=== PATIENT | male | born 1970 | race Caucasian/White ===

== ENCOUNTER 2019-06-23 02:28 | Emergency (ER) | payer SELFPAY ==
[~2019-06-23] VITALS: Ht 177.8 cm; Wt 81.6 kg
[2019-06-23 02:40] VITALS: BP 133/83
--- NOTE | 2019-06-23 02:40 | NUR ---
TO BED # 12 AMBULATORY
--- NOTE | 2019-06-23 02:46 | NUR ---
48 Y/O M PRESENTS TO ED WITH C/O RT ARM PAIN FOR A FEW HOURS. ERYTHEMA AND SLIGHT EDEMA NOTED TO RT ELBOW. RT ELBOW WARM TO TOUCH AND TENDER TO TOUCH. PT UNSURE OF HOW HE SUSTAINED THE INJURY. WILL UPDATE ERMD ABOUT PT STATUS.
[2019-06-23] MEDS ORDERED: KETOROLAC 30 MG/ML VIAL IVP ONE (03:30)
[2019-06-23] MEDS ORDERED: VANCOMYCIN 1,000 MG in DEXTROSE 5% 250 ML IV ONE (03:30)
[2019-06-23] MEDS ORDERED: VANCOMYCIN 1,000 MG VIAL ONE (03:49)
[2019-06-23 04:59] VITALS: BP 128/79
--- NOTE | 2019-06-23 04:59 | NUR ---
PT SEEN WITH EYES CLOSED. VISIBLE CHEST RISE AND FALL NOTED.VSS. WILL CONTINUE TO MONITOR.
--- NOTE | 2019-06-23 06:00 | NUR ---
Patient discharged with v/s stable. Written and verbal after care instructions given and explained. Patient alert, oriented and verbalized understanding of instructions. Ambulatory with steady gait. All questions addressed prior to discharge. ID band removed. Patient advised to follow up with PMD. Rx of keflex and naprosyn given. Patient educated on indication of medication including possible reaction and side effects. Opportunity to ask questions provided and answered.
== END 2019-06-23 06:00 | disposition home or self-care (01) ==
LOC: MED 02:28
DX: L03.113 Cellulitis of right upper limb (principal)
CPT/HCPCS: 36415; 87040; 96365; 96366; 96375; 99283; J1885; J3370

== ENCOUNTER 2019-08-25 07:54 | Emergency (ER) | payer SELFPAY ==
[~2019-08-25] VITALS: Ht 177.8 cm; Wt 81.0 kg
[2019-08-25 08:01] VITALS: BP 123/65
--- NOTE | 2019-08-25 08:02 | NUR ---
PT TO BED 9 WITH STEADY GAIT
--- NOTE | 2019-08-25 08:13 | NUR ---
DR SLAUGHTER AT BEDSIDE
--- NOTE | 2019-08-25 08:14 | NUR ---
C/O PRODUCTIVE COUGH, SORE THROAT 6/10 PAIN, INTERMITTENT SOB X 2 WKS. LUNGS CLEAR BILATERALLY. DENIES N/V/D OR CP. PT ALERT AND AWAKE, VS STABLE, AFEBRILE PT REPORTS HE HAS NOT TAKEN ANY OTC MEDICATIONS DENIES PMH, DENIES RX
[2019-08-25 08:55] VITALS: BP 125/62
--- NOTE | 2019-08-25 08:55 | NUR ---
Patient discharged with v/s stable. Written and verbal after care instructions given and explained REHARDING BRONCHITIS. Patient alert, oriented and verbalized understanding of instructions. Ambulatory with steady gait. All questions addressed prior to discharge. ID band removed. Patient advised to follow up with PMD. Rx of ROBITUSSIN AND CLARITIN given. Patient educated on indication of medication including possible reaction and side effects. Opportunity to ask questions provided and answered.
== END 2019-08-25 08:55 | disposition home or self-care (01) ==
LOC: MED 07:54
DX: J40 Bronchitis, not specified as acute or chronic (principal); J02.9 Acute pharyngitis, unspecified
CPT/HCPCS: 71046; 99283

== ENCOUNTER 2021-04-15 22:39 | Emergency (ER) | payer SELFPAY ==
--- NOTE | 2021-04-15 23:25 | NUR ---
PATIENT Called to be triage, no response PATIENT LEFT WITHOUT BEING SEEN BY DR. MYLES. NO FURTHER CARE PROVIDED FOR PATIENT.
--- NOTE | 2021-04-15 23:35 | NUR ---
CALLED FOR THE SECOND TIME NO RESPONSE
--- NOTE | 2021-04-15 23:40 | NUR ---
CALLED FOR THE THIRD TIME, NO RESPONSE
== END 2021-04-15 23:25 | disposition left against medical advice (07) ==
LOC: MED 22:39
DX: Z53.21 Procedure and treatment not carried out due to patient leaving prior to being seen by health care provider (principal)

== ENCOUNTER 2021-04-21 21:19 | Emergency (ER) | payer MEDICAID ==
[~2021-04-21] VITALS: Ht 182.9 cm; Wt 81.6 kg
[2021-04-21 21:20] VITALS: BP 116/79
--- NOTE | 2021-04-21 21:23 | NUR ---
TO LOBBY A/W BED AMBULATORY
[2021-04-21] MEDS ORDERED: ASPIRIN 325 MG TAB PO ONE (22:30)
[2021-04-21] MEDS ORDERED: NITROGLYCERIN 0.4 MG TAB SL ONE (22:30)
[2021-04-21 22:50] LABS: BASOPHILS # (AUTO) 0.1 K/uL (0.00-0.22); BASOPHILS % (AUTO) 0.9 % (0.0-2.0); EOSINOPHILS # (AUTO) 0.1 K/uL (0-0.4); EOSINOPHILS % (AUTO) 1.1 % (0.0-4.0); HEMATOCRIT 38.8 % (36-52); HEMOGLOBIN 13.1 g/dL (12.0-18.0); LYMPHOCYTES # (AUTO) 0.9 K/uL (2.0-11.5); LYMPHOCYTES % (AUTO) 15.1 % (20.5-51.1); MEAN CORPUSCULAR HEMOGLOBIN 32 pg (27-31); MEAN CORPUSCULAR HGB CONC 34 g/dL (33-37); MEAN CORPUSCULAR VOLUME 93.8 fL (80-94); MONOCYTES # (AUTO) 0.8 K/uL (0.8-1.0); MONOCYTES % (AUTO) 12.9 % (1.7-9.3); NEUTROPHILS # (AUTO) 4.3 K/uL (1.8-7.7); PLATELET COUNT (AUTO) 378 K/uL (140-450); RED BLOOD CELL COUNT(AUTO) 4.14 MIL/uL (4.20-6.10); RED CELL DISTRIBUTION WIDTH 12.7 % (11.6-13.7); WHITE BLOOD COUNT (AUTO) 6.2 K/uL (4.8-10.8)
[2021-04-21 23:07] LABS: ANION GAP 8.1 (8-16); ASPARTATE AMINOTRANSFERASE 37 U/L (15-37); CARBON DIOXIDE 29.5 mmol/L (21-32); CHLORIDE 104 mmol/L (98-107); GFR ARICAN-AMERICAN 101 mL/min (>90); GLUCOSE 128 mg/dL (74-106); POTASSIUM 3.6 mmol/L (3.5-5.1); SODIUM SERUM 138 mmol/L (136-145); TOTAL BILIRUBIN 0.7 mg/dL (0.0-1.0); UREA NITROGEN, BLOOD 17 mg/dL (7-18)
--- NOTE | 2021-04-21 23:26 | NUR ---
Sherly jacques in [facility] - 04/21/21 at 2332 by MEDDM TO ER BED 3
--- NOTE | 2021-04-21 23:32 | NUR ---
AMBULATED TO ER BED 3
[2021-04-22] MEDS ORDERED: NITROGLYCERIN 0.4 MG TAB SL ONE
--- NOTE | 2021-04-22 | NUR ---
Per ERMD medicated patient. patient tolerated well
[2021-04-22] MEDS ORDERED: ASPIRIN 325 MG TAB ONE (00:01)
--- NOTE | 2021-04-22 00:13 | NUR ---
Patient does not wish to proceed with medical care recommended by Zelda. Patient given information related to possible complications, up to and including , which could occur as a result of leaving hospital at this time. Patient verbalizes understanding of risks involved leaving against medical advice. Patient has signed AMA form.
[2021-04-22 00:15] VITALS: BP 115/67
== END 2021-04-22 00:13 | disposition left against medical advice (07) ==
LOC: MED 21:19
DX: R07.9 Chest pain, unspecified (principal); R00.2 Palpitations; R05 Cough
CPT/HCPCS: 71045; 80053; 84484; 85025; 93005; 99285; G0482

== ENCOUNTER 2021-04-22 05:37 | Inpatient (IN) | payer MEDICAID ==
[~2021-04-22] VITALS: Ht 177.8 cm; Wt 81.6 kg
[2021-04-22 06:00] VITALS: BP 133/73
--- NOTE | 2021-04-22 06:00 | NUR ---
TO PSYCHIATRIC AMBULATORY
--- NOTE | 2021-04-22 06:28 | NUR ---
SEEN AND EXAMINED BY ERMD WITH ORDERS.
[2021-04-22 07:01] LABS: BASOPHILS # (AUTO) 0.1 K/uL (0.00-0.22); EOSINOPHILS # (AUTO) 0.1 K/uL (0-0.4); EOSINOPHILS % (AUTO) 2.3 % (0.0-4.0); HEMATOCRIT 39.3 % (36-52); HEMOGLOBIN 13.2 g/dL (12.0-18.0); LYMPHOCYTES # (AUTO) 0.8 K/uL (2.0-11.5); LYMPHOCYTES % (AUTO) 14.5 % (20.5-51.1); MEAN CORPUSCULAR HEMOGLOBIN 32 pg (27-31); MEAN CORPUSCULAR HGB CONC 34 g/dL (33-37); MEAN CORPUSCULAR VOLUME 93.8 fL (80-94); MONOCYTES % (AUTO) 16.5 % (1.7-9.3); NEUTROPHILS # (AUTO) 3.8 K/uL (1.8-7.7); NEUTROPHILS % (AUTO) 65.7 % (42.2-75.2); PLATELET COUNT (AUTO) 342 K/uL (140-450); RED BLOOD CELL COUNT(AUTO) 4.19 MIL/uL (4.20-6.10); RED CELL DISTRIBUTION WIDTH 12.8 % (11.6-13.7); WHITE BLOOD COUNT (AUTO) 5.8 K/uL (4.8-10.8)
[2021-04-22 07:16] LABS: ALBUMIN 3.1 g/dL (3.4-5.0); CARBON DIOXIDE 26.9 mmol/L (21-32); POTASSIUM 3.9 mmol/L (3.5-5.1); TOTAL BILIRUBIN 0.5 mg/dL (0.0-1.0)
--- NOTE | 2021-04-22 07:52 | NUR ---
PT TAKEN TO ROOM 3. PT PLACED IN GOWN AND PLACED ONTO CARDIC MONITOR. PT ALSO PROVIDED WITH WARM BLANKET
--- NOTE | 2021-04-22 08:06 | NUR ---
50 Y MALE WITH C/O CHEST PAIN X1 DAY. PT STATED PAIN STARTED RANDOMLY ALONG WITH LE SWELLING BILATERALLY. DENIES RADITING PAIN AND STATED PAIN IS ONLY FELT IN HIS CHEST REGION. PT STATED "PAIN FEELS LIKE SOMEONE IS PUSHING DOWN ON HIS CHEST." UPON ASSESSMENT S1 AND S2 HEARD. NKA PMH: DENIES
[2021-04-22] MEDS ORDERED: ASPIRIN 81 MG TAB.CHEW PO ONE (08:35)
[2021-04-22] MEDS ORDERED: NACL 0.9% 1,000 ML IV SCH (08:40)
[2021-04-22] MEDS ORDERED: POTASSIUM CHLORIDE 10 MEQ TABER PO PRN (08:40)
[2021-04-22] MEDS ORDERED: ZOLPIDEM 5 MG TAB PO PRN (08:40)
[2021-04-22] MEDS ORDERED: HYDROcodone/APAP 7.5/325 MG 1 TAB PO PRN (08:40)
[2021-04-22] MEDS ORDERED: guaiFENesin DM 200/20 MG-10 ML 10 ML UDC PO PRN (08:40)
[2021-04-22] MEDS ORDERED: DOCUSATE SODIUM 100 MG GELCAP PO PRN (08:40)
[2021-04-22] MEDS ORDERED: ACETAMINOPHEN 325 MG TAB PO PRN (08:40)
[2021-04-22] MEDS ORDERED: ONDANSETRON 4 MG/2 ML VIAL IM/IVP PRN (08:40)
[2021-04-22] MEDS ORDERED: NITROGLYCERIN 0.4 MG TAB SL PRN (08:40)
--- NOTE | 2021-04-22 08:50 | NUR ---
UA COLLECTED BEDSIDE AND WALKED OVER TO LAB
--- NOTE | 2021-04-22 08:55 | NUR ---
CHEST XRAY BEDSIDE WITH PT
[2021-04-22] MEDS ORDERED: METOPROLOL 25 MG TAB PO SCH (09:00)
[2021-04-22] MEDS ORDERED: lisinopriL 5 MG TAB PO SCH (09:00)
[2021-04-22] MEDS ORDERED: PANTOPRAZOLE 40 MG TABEC PO SCH (09:00)
[2021-04-22] MEDS ORDERED: ECOTRIN 81 MG TABEC PO SCH (09:00)
[2021-04-22 09:18] LABS: APPEARANCE,URINE CLEAR (CLEAR); BILIRUBIN,URINE 2+ (NEGATIVE); BLOOD, URINE NEGATIVE (NEGATIVE); COLOR,URINE DARK YELLOW (YELLOW); LEUKOCYTE ESTERASE ,URINE NEGATIVE (NEGATIVE); NITRITE, URINE NEGATIVE (NEGATIVE); UGLUCOSE NEGATIVE (NEGATIVE)
[2021-04-22] MEDS ORDERED: CRUSHER, PILL MC ONE (09:28)
[2021-04-22 10:27] LABS: CHOL/HDL RATIO 4.3 (1-4.5); FREE T4 (FREE THYROXINE) 0.99 ng/dL (0.76-1.46); PHOSPHORUS 3.4 mg/dL (2.5-4.9); THYROID STIMULATING HORMONE 2.05 uIU/mL (0.34-3.74)
[2021-04-22 10:55] LABS: PROTHROMBIN TIME 10.2 secs (10.8-13.4)
--- NOTE | 2021-04-22 11:59 | NUR ---
PT HAS BEEN PROVIDED WITH LUNCH TRAY BEDSIDE
[2021-04-22 12:20] LABS: BARBITURATE, URINE NEGATIVE ng/ml (NEG <=200); BENZODIAZEPINE, URINE NEGATIVE ng/mL (NEG <=200); CANNABINOID, URINE POSITIVE ng/mL (NEG <=50); COCAINE, URINE NEGATIVE ng/mL (NEG <=300); OPIATE, URINE NEGATIVE ng/mL (NEG <=2000); PHENCYCLIDINE SCREEN,URINE NEGATIVE ng/mL (NEG <=25)
--- NOTE | 2021-04-22 14:31 | NUR ---
PT CURRENTLY RESTING WITH EYES CLOSED. BED IN LOWEST POSITION WITH LIGHTS OFF. BED IN LOWEST POSITION WITH SIDERAIL X1 UP. VITAL SIGNS STABLE AND PT STILL ON CARDIC MONITOR. WILL CONTINUE TO MONITOR
[2021-04-22] MEDS ORDERED: ATORVASTATIN 20 MG TAB PO SCH (17:00)
--- NOTE | 2021-04-22 17:42 | NUR ---
DR. APOLLO FLORIAN MADE AWARE OF PT LEAVING AMA. INFORMED MD THAT SIGNATURE IS NEEDED ON AMA FORM
[2021-04-22 17:56] VITALS: BP 112/73
--- NOTE | 2021-04-22 17:56 | NUR ---
Patient does not wish to proceed with medical care recommended by dr. mis barron. Patient given information related to possible complications, up to and including , which could occur as a result of leaving hospital at this time. Patient verbalizes understanding of risks involved leaving against medical advice. Patient has signed AMA form.
[2021-04-23 08:08] LABS: T4 (THYROXINE) 10.6 ug/dL (4.5-12.0)
== END 2021-04-22 17:41 | disposition left against medical advice (07) | DRG 190 ==
LOC: MED 05:37 → MTU 09:07
PROVIDERS: ADMIT Family Medicine; ATTEND Family Medicine
DX: I21.A1 Myocardial infarction type 2 (principal); E44.1 Mild protein-calorie malnutrition; E86.0 Dehydration; F15.10 Other stimulant abuse, uncomplicated
CPT/HCPCS: 36415; 71045; 80053; 80305; 81003; 82150; 83036; 83690; 83735; 83880; 84100; 84436; 84439; 84443; 84479; 84484; 85025; 85610; 85730; 93005; 93971; 96372; 99285; J1644; Q0092

== ENCOUNTER 2021-06-05 08:13 | Emergency (ER) | payer MEDICAID, SELFPAY ==
[~2021-06-05] VITALS: Ht 177.8 cm; Wt 86.2 kg
[2021-06-05 09:03] VITALS: BP 159/79
--- NOTE | 2021-06-05 09:33 | NUR ---
50 Y MALE WITH C/O NITHIN LOWER LEGS SWELLING X1 MONTH AND C/O BLURRED VISION X 4 DAYS. PT STATED THE SWELLING STARTED SHORTLY AFTER HE WAS D/C AND HAS PROGRESSIVLEY GOTTEN WORSE OVER TIME. UPON ASSESSMENT SLIGHT REDNESS NOTED ON BILTERAL LE AND PITTING EDEMA NOTED +1 ON BILATERAL LE AND UE. PEDIAL AND RADIAL PULSES BILATERALLY FELT AND STRONG. WEAKNESS NOTED ON LE AND UE BOX [employer] LO[employer] VA: RIGHT 20/40, LEFT EYE 20/20, BOTH EYES 20/40 PMH: HERNIA REPAIR
--- NOTE | 2021-06-05 09:34 | NUR ---
DR. SOLER BEDSIDE EVALUATING PT
[2021-06-05] MEDS ORDERED: ASPIRIN 325 MG TAB PO ONE (09:40)
[2021-06-05] MEDS ORDERED: cephALEXin 500 MG CAP PO ONE (09:40)
[2021-06-05] MEDS ORDERED: FUROSEMIDE 40 MG/4 ML VIAL IVP ONE (09:40)
--- NOTE | 2021-06-05 10:00 | NUR ---
ULTRASOUND BEDSIDE WITH PATIENT
--- NOTE | 2021-06-05 10:20 | NUR ---
20 G IV ESTABLISHED IN R FOREARM. BLOOD WORK COLLECTED FROM IV AND HANDED TO LABORATORY CHEMICAL ASSISTANT ALEJANDRO
--- NOTE | 2021-06-05 10:29 | NUR ---
PT TAKEN TO CT VIA [facility]
--- NOTE | 2021-06-05 10:29 | NUR ---
PT ALSO PROVIDED WITH BLANKET AND URINAL BEDSIDE
[2021-06-05 10:32] LABS: BASOPHILS % (AUTO) 0.6 % (0.0-2.0); EOSINOPHILS # (AUTO) 0.1 K/uL (0-0.4); EOSINOPHILS % (AUTO) 2.2 % (0.0-4.0); HEMATOCRIT 36.5 % (36-52); HEMOGLOBIN 12.1 g/dL (12.0-18.0); LYMPHOCYTES # (AUTO) 0.7 K/uL (2.0-11.5); LYMPHOCYTES % (AUTO) 9.8 % (20.5-51.1); MEAN CORPUSCULAR HEMOGLOBIN 31 pg (27-31); MEAN CORPUSCULAR HGB CONC 33 g/dL (33-37); MEAN CORPUSCULAR VOLUME 94.1 fL (80-94); MONOCYTES # (AUTO) 0.9 K/uL (0.8-1.0); MONOCYTES % (AUTO) 12.8 % (1.7-9.3); NEUTROPHILS % (AUTO) 74.6 % (42.2-75.2); PLATELET COUNT (AUTO) 402 K/uL (140-450); RED BLOOD CELL COUNT(AUTO) 3.88 MIL/uL (4.20-6.10); RED CELL DISTRIBUTION WIDTH 13.1 % (11.6-13.7); WHITE BLOOD COUNT (AUTO) 6.7 K/uL (4.8-10.8)
--- NOTE | 2021-06-05 10:38 | NUR ---
PT RETURNED TO BED [address] V[address] [facility]
[2021-06-05 10:49] LABS: ANION GAP 12.3 (8-16); POTASSIUM 4.3 mmol/L (3.5-5.1)
--- NOTE | 2021-06-05 11:35 | NUR ---
950 ML REMOVED FROM PT URINAL AND RETURNED TO PATIENT BEDSIDE Addendum: 06/05/21 at 1143 by [email or web address] 950 ml emptied from urinal
--- NOTE | 2021-06-05 11:43 | NUR ---
dr. greene bedside speaking with patient
--- NOTE | 2021-06-05 12:00 | NUR ---
Patient appears to be resting comfortably in bed and tlaking on phone. Vital Signs within normal limits and charted. Respirations even and unlabored.
[2021-06-05] MEDS ORDERED: FURO-570 PO (12:40)
[2021-06-05] MEDS ORDERED: CEPH-588 PO (12:40)
[2021-06-05] MEDS ORDERED: SULF-59 PO (12:40)
[2021-06-05 12:48] VITALS: BP 121/82
--- NOTE | 2021-06-05 12:48 | NUR ---
Patient discharged with v/s stable. Written and verbal after care instructions given and explained. Patient alert, oriented and verbalized understanding of instructions. Ambulatory with steady gait. All questions addressed prior to discharge. ID band removed. Patient advised to follow up with PMD. Rx of KEFLEX, LASIX, AND BACTRIM given. Patient educated on indication of medication including possible reaction and side effects. Opportunity to ask questions provided and answered.
== END 2021-06-05 12:48 | disposition home or self-care (01) ==
LOC: MED 08:13
DX: L03.90 Cellulitis, unspecified (principal); R60.0 Localized edema; R42 Dizziness and giddiness; I10 Essential (primary) hypertension; Z98.890 Other specified postprocedural states; Z79.899 Other long term (current) drug therapy
CPT/HCPCS: 36415; 70450; 80048; 83880; 84484; 85025; 93005; 93970; 96374; 99285; J1940; Q0092

== ENCOUNTER 2022-07-28 01:14 | Emergency (ER) | payer MEDICAID ==
[~2022-07-28] VITALS: Ht 177.8 cm; Wt 90.7 kg
[~2022-07-28 01:14] MED LIST: HYDR-5080 PO
[2022-07-28 01:25] VITALS: BP 130/89
--- NOTE | 2022-07-28 01:25 | NUR ---
TO BED AMBULATORY
[2022-07-28] MEDS ORDERED: KETOROLAC 30 MG/ML VIAL IM ONE (01:45)
[2022-07-28 01:58] LABS: BASOPHILS % (AUTO) 0.8 % (0.0-2.0); EOSINOPHILS # (AUTO) 0.2 K/uL (0-0.4); EOSINOPHILS % (AUTO) 3.6 % (0.0-4.0); HEMATOCRIT 37.1 % (36-52); HEMOGLOBIN 12.4 g/dL (12.0-18.0); LYMPHOCYTES # (AUTO) 1.5 K/uL (2.0-11.5); LYMPHOCYTES % (AUTO) 23.2 % (20.5-51.1); MEAN CORPUSCULAR HEMOGLOBIN 32 pg (27-31); MEAN CORPUSCULAR HGB CONC 34 g/dL (33-37); MEAN CORPUSCULAR VOLUME 94.2 fL (80-94); MONOCYTES # (AUTO) 0.7 K/uL (0.8-1.0); MONOCYTES % (AUTO) 11.6 % (1.7-9.3); NEUTROPHILS # (AUTO) 3.8 K/uL (1.8-7.7); NEUTROPHILS % (AUTO) 60.8 % (42.2-75.2); PLATELET COUNT (AUTO) 300 K/uL (140-450); RED BLOOD CELL COUNT(AUTO) 3.94 MIL/uL (4.20-6.10); RED CELL DISTRIBUTION WIDTH 12.8 % (11.6-13.7); WHITE BLOOD COUNT (AUTO) 6.3 K/uL (4.8-10.8)
[2022-07-28 02:12] LABS: ALBUMIN 3.3 g/dL (3.4-5.0); CARBON DIOXIDE 29.4 mmol/L (21-32); POTASSIUM 3.4 mmol/L (3.5-5.1); TOTAL BILIRUBIN 0.5 mg/dL (0.0-1.0)
--- NOTE | 2022-07-28 02:49 | NUR ---
US AT BEDSIDE
--- NOTE | 2022-07-28 03:35 | NUR ---
ERMD AT BEDSIDE
[2022-07-28] MEDS ORDERED: LIDOCAINE 1% 500 MG/ 50 ML VIAL INJ ONE (04:00)
[2022-07-28] MEDS ORDERED: LIDOCAINE 2% 1000 MG/50 ML VIAL INJ ONE (04:03)
--- NOTE | 2022-07-28 04:09 | NUR ---
LIDOCAINE 1% NOT AVAILABLE. VERBAL ORDER FROM DEJA DAVID FOR 2% LIDOCAINE. HANDED TO &WILL BE ADMINISTERED BY DEJA.
--- NOTE | 2022-07-28 04:20 | NUR ---
ASPIRATION OF HEMATOMA PROCEDURE PERFORMED BY DEJA -300CC COLLECTED.
[2022-07-28] MEDS ORDERED: IBUP-2213 PO (04:23)
[2022-07-28] MEDS ORDERED: HYDR-5191 PO (04:23)
[2022-07-28 04:32] VITALS: BP 130/89
--- NOTE | 2022-07-28 04:32 | NUR ---
Patient discharged with v/s stable. Written and verbal after care instructions given and explained. Patient alert, oriented and verbalized understanding of instructions. Ambulatory with steady gait. All questions addressed prior to discharge. ID band removed. Patient advised to follow up with PMD. Rx of HYDROCODONE ACETAMINOPHEN IBUPROFEN given.
== END 2022-07-28 04:32 | disposition home or self-care (01) ==
LOC: MED 01:14
DX: S70.12XA Contusion of left thigh, initial encounter (principal); I10 Essential (primary) hypertension; Z79.899 Other long term (current) drug therapy; X58.XXXA Exposure to other specified factors, initial encounter; Y93.89 Activity, other specified; Y92.89 Other specified places as the place of occurrence of the external cause; Y99.8 Other external cause status
CPT/HCPCS: 10160; 36415; 80053; 83605; 85025; 85379; 93971; 96372; 99284; J1885; J2001; Q0092

== ENCOUNTER 2022-07-31 01:43 | Inpatient (IN) | payer MEDICAID ==
[~2022-07-31] VITALS: Ht 177.8 cm; Wt 90.7 kg
[~2022-07-31 01:43] MED LIST changes: +HYDR-5191 PO; +IBUP-2213 PO
[2022-07-31 02:43] VITALS: BP 154/90
--- NOTE | 2022-07-31 02:45 | NUR ---
TO LOBBY A/W BED AMBULATORY
--- NOTE | 2022-07-31 02:50 | NUR ---
Patient lying in bed, A/Ox4, chest rise and fall symmetrical, no s/s of distress.
--- NOTE | 2022-07-31 02:52 | NUR ---
PT TAKEN TO BED 2
--- NOTE | 2022-07-31 03:13 | NUR ---
Dr. Martinez examining patient.
[2022-07-31] MEDS ORDERED: HYDROcodone/APAP 10/325 MG 1 TAB TAB PO ONE (03:45)
--- NOTE | 2022-07-31 04:15 | NUR ---
Patient lying in bed, A/Ox4, chest rise and fall symmetrical, no s/s of distress.
--- NOTE | 2022-07-31 04:58 | NUR ---
WILLY COLLECTED AND TAKEN TO LAB.
[2022-07-31] MEDS: NACL 0.9% 1,000 ML IV ONE ×2 (05:52→07:22)
--- NOTE | 2022-07-31 05:52 | NUR ---
Note undone in [facility] - 07/31/22 at 06 by [email or web address] Patient refusing IV insertion. Dr. Piper verbally informed that patient is refusing IV insertion. Addendum: 07/31/22 at 0631 by [email or web address] Amendment undone in [facility] - 07/31/22 at 06 by [email or web address] Patient refusing IV insertion. Dr. Piper verbally informed that patient is refusing IV insertion. Dr. Piper is aware.
--- NOTE | 2022-07-31 06:00 | NUR ---
Patient refusing IV insertion. Dr. Piper verbally informed that patient is refusing IV insertion. Dr. Piper stated that patient must have an IV. Patient informed verbally of Dr. Piper's statement. PAtient agreed to IV insertion.
--- NOTE | 2022-07-31 06:32 | NUR ---
Patient lying in bed, A/Ox4, chest rise and fall symmetrical, no s/s of distress.
--- NOTE | 2022-07-31 07:20 | NUR ---
Patient lying in bed, A/Ox4, chest rise and fall symmetrical, no s/s of distress.
--- NOTE | 2022-07-31 07:22 | NUR ---
Change of shift report given to AM shift nurse Modesta. AM shift nurse Modesta verbalized understanding of report, no further questions.
--- NOTE | 2022-07-31 07:31 | NUR ---
Sherly jacques in ED - 07/31/22 at 0733 by [email or web address] Change of shift report given to AM shift nurse Modesta. AM shift nurse Modesta verbalized understanding of report, no further questions.
--- NOTE | 2022-07-31 07:55 | NUR ---
PT MOVED TO BED 5 VIA [facility]
[2022-07-31] MEDS ORDERED: guaiFENesin DM 200/20 MG-10 ML 10 ML UDC PO PRN (08:05)
[2022-07-31] MEDS ORDERED: ZOLPIDEM 5 MG TAB PO PRN (08:05)
[2022-07-31] MEDS ORDERED: DOCUSATE SODIUM 100 MG GELCAP PO PRN (08:05)
[2022-07-31] MEDS ORDERED: POTASSIUM CHLORIDE 10 MEQ TABER PO PRN (08:05)
[2022-07-31] MEDS ORDERED: ACETAMINOPHEN 325 MG TAB PO PRN (08:05)
[2022-07-31] MEDS ORDERED: ONDANSETRON 4 MG/2 ML VIAL IM/IVP PRN (08:05)
[2022-07-31] MEDS ORDERED: HYDROcodone/APAP 7.5/325 MG 1 TAB PO PRN (08:05)
--- NOTE | 2022-07-31 08:35 | NUR ---
PT TAKEN TO CT VIA [facility]
--- NOTE | 2022-07-31 08:41 | NUR ---
PT BROUGHT BACK FROM CT VIA [facility]
--- NOTE | 2022-07-31 08:42 | NUR ---
MD FLORIAN AT BEDSIDE FOR EVALUATION
[2022-07-31] MEDS ORDERED: PANTOPRAZOLE 40 MG TABEC PO SCH (09:00)
[2022-07-31 09:01] LABS: PROTHROMBIN TIME 10.6 secs (10.8-13.4)
[2022-07-31 09:06] LABS: CHOL/HDL RATIO 1.8 (1-4.5); FREE T4 (FREE THYROXINE) 1.08 ng/dL (0.76-1.46); MAGNESIUM 1.8 mg/dL (1.8-2.4); PHOSPHORUS 3.1 mg/dL (2.5-4.9); THYROID STIMULATING HORMONE 2.1 uIU/mL (0.34-3.74)
[2022-07-31] MEDS ORDERED: cefTRIAXone 1,000 MG VIAL ONE (09:06)
--- NOTE | 2022-07-31 09:08 | NUR ---
WRITTEN ORDERS VIA HOSPITAL PHONE RECEIVED FROM MD FLORIAN. ORDERS ENTERED AND CARRIED OUT +CBC
[2022-07-31 09:30] VITALS: BP 134/82
--- NOTE | 2022-07-31 09:30 | NUR ---
Patient will be admitted to care of MD FLORIAN . Admited to [facility]. Will go to room 118. Belongings list completed. Report to ALONZO SHEN. Addendum: 07/31/22 at 0953 by PHSEP ROCEPHIN PULLED AND HELD DUE TO PENDING BLOOD CULTURE DRAW. FLOOR NURSE MADE AWARE AND HANDED MEDICATION.
--- NOTE | 2022-07-31 09:54 | NUR ---
Patient eloped refused to sign against medical advice.
[2022-07-31 10:11] LABS: BASOPHILS # (AUTO) 0.1 K/uL (0.00-0.22); BASOPHILS % (AUTO) 0.9 % (0.0-2.0); EOSINOPHILS # (AUTO) 0.2 K/uL (0-0.4); EOSINOPHILS % (AUTO) 3.7 % (0.0-4.0); HEMATOCRIT 38.6 % (36-52); LYMPHOCYTES # (AUTO) 1.8 K/uL (2.0-11.5); LYMPHOCYTES % (AUTO) 30.7 % (20.5-51.1); MEAN CORPUSCULAR HEMOGLOBIN 32 pg (27-31); MEAN CORPUSCULAR HGB CONC 34 g/dL (33-37); MEAN CORPUSCULAR VOLUME 94.8 fL (80-94); MONOCYTES # (AUTO) 0.6 K/uL (0.8-1.0); MONOCYTES % (AUTO) 10.1 % (1.7-9.3); NEUTROPHILS # (AUTO) 3.1 K/uL (1.8-7.7); NEUTROPHILS % (AUTO) 54.6 % (42.2-75.2); PLATELET COUNT (AUTO) 325 K/uL (140-450); RED BLOOD CELL COUNT(AUTO) 4.07 MIL/uL (4.20-6.10); RED CELL DISTRIBUTION WIDTH 13.2 % (11.6-13.7); WHITE BLOOD COUNT (AUTO) 5.7 K/uL (4.8-10.8)
[2022-08-01 08:07] LABS: T4 (THYROXINE) 10.4 ug/dL (4.5-12.0)
== END 2022-07-31 09:55 | disposition left against medical advice (07) | DRG 384 ==
LOC: MED 01:43 → MMU 05:35 → MTU 09:26
PROVIDERS: ADMIT Family Medicine; ATTEND Family Medicine
DX: S70.12XA Contusion of left thigh, initial encounter (principal); I10 Essential (primary) hypertension; Z20.822 Contact with and (suspected) exposure to COVID-19; X58.XXXA Exposure to other specified factors, initial encounter; Y93.89 Activity, other specified; Y92.89 Other specified places as the place of occurrence of the external cause; Y99.8 Other external cause status; Z59.86 Financial insecurity
CPT/HCPCS: 36415; 73700; 82150; 83036; 83690; 83735; 83880; 84100; 84436; 84439; 84443; 84479; 85025; 85610; 85730; 93971; 96360; 99285; J0696; J7030; Q0092

== ENCOUNTER 2023-05-19 21:56 | Emergency (ER) | payer MEDICAID ==
[~2023-05-19] VITALS: Ht 177.8 cm; Wt 81.6 kg
[2023-05-19 22:08] VITALS: BP 139/111; PULSE 86; RESP 18; TEMP 98.6; O2SAT 100
[2023-05-19 22:49] LABS: AMPHETAMINE, URINE POSITIVE ng/ml (NEG <=1000); BARBITURATE, URINE NEGATIVE ng/ml (NEG <=200); BENZODIAZEPINE, URINE NEGATIVE ng/mL (NEG <=200); CANNABINOID, URINE NEGATIVE ng/mL (NEG <=50); COCAINE, URINE NEGATIVE ng/mL (NEG <=300); PHENCYCLIDINE SCREEN,URINE NEGATIVE ng/mL (NEG <=25)
[2023-05-19 22:50] LABS: OPIATE, URINE NEGATIVE ng/mL (NEG <=2000)
[2023-05-19 23:31] LABS: BASOPHILS # (AUTO) 0.1 K/uL (0.00-0.22); BASOPHILS % (AUTO) 0.7 % (0.0-2.0); EOSINOPHILS # (AUTO) 0.1 K/uL (0-0.4); EOSINOPHILS % (AUTO) 0.6 % (0.0-4.0); HEMOGLOBIN 13.3 g/dL (12.0-18.0); LYMPHOCYTES # (AUTO) 2.2 K/uL (2.0-11.5); LYMPHOCYTES % (AUTO) 12.9 % (20.5-51.1); MEAN CORPUSCULAR HEMOGLOBIN 31 pg (27-31); MEAN CORPUSCULAR HGB CONC 33 g/dL (33-37); MEAN CORPUSCULAR VOLUME 92.6 fL (80-94); MONOCYTES # (AUTO) 1.9 K/uL (0.8-1.0); MONOCYTES % (AUTO) 11.3 % (1.7-9.3); NEUTROPHILS # (AUTO) 12.5 K/uL (1.8-7.7); NEUTROPHILS % (AUTO) 74.5 % (42.2-75.2); PLATELET COUNT (AUTO) 257 K/uL (140-450); RED BLOOD CELL COUNT(AUTO) 4.32 MIL/uL (4.20-6.10); RED CELL DISTRIBUTION WIDTH 13.7 % (11.6-13.7); WHITE BLOOD COUNT (AUTO) 16.8 K/uL (4.8-10.8)
[2023-05-19 23:41] LABS: ANION GAP 14.2 (8-16); CALCIUM 8.9 mg/dL (8.5-10.1); CARBON DIOXIDE 23.1 mmol/L (21-32); CREATININE 1.1 mg/dL (0.6-1.3); POTASSIUM 4.3 mmol/L (3.5-5.1)
[2023-05-19] MEDS: MORPHINE SULFATE 4 MG/ML SYR IVP ONE (23:42)
[2023-05-19] MEDS ORDERED: AMPICILLIN/SULBACTAM 1.5 GM VIAL IM ONE (23:55)
[2023-05-19] MEDS ORDERED: VANCOMYCIN PER PHARMACY MC PRN (23:55)
[2023-05-20] MEDS ORDERED: AMPICILLIN/SULBACTAM 1.5 GM VIAL ONE (00:20)
[2023-05-20] MEDS ORDERED: VANCOMYCIN 1,000 MG VIAL ONE (00:20)
[2023-05-20] MEDS: AMPICILLIN/SULBACTAM 1.5 GM in NACL 0.9% 50 ML IV ONE (00:43)
[2023-05-20] MEDS: VANCOMYCIN 1GM/DEXT 5% PREMIX 200 ML IV ONE (00:45)
[2023-05-20] MEDS: MORPHINE SULFATE 4 MG/ML SYR IVP ONE (01:50)
[2023-05-20] MEDS: LIDOCAINE/EPI MPF 1%1:200000 30 ML VIAL INJ ONE (03:00)
[2023-05-20 06:06] VITALS: BP 109/68; PULSE 78; RESP 16; TEMP 98.6; O2SAT 100
== END 2023-05-20 06:10 | disposition short-term general hospital (02) ==
LOC: MED 21:56
DX: L03.113 Cellulitis of right upper limb (principal); L03.114 Cellulitis of left upper limb; L02.511 Cutaneous abscess of right hand; I10 Essential (primary) hypertension; F15.90 Other stimulant use, unspecified, uncomplicated
CPT/HCPCS: 10060; 36415; 73130; 80048; 80305; 85025; 85651; 90471; 90715; 96365; 96366; 96368; 96375; 99284; J0295; J2270; J3370

== ENCOUNTER 2023-06-05 13:29 | Emergency (ER) | payer MEDICAID ==
[~2023-06-05] VITALS: Ht 177.8 cm; Wt 80.9 kg
[2023-06-05 14:00] VITALS: BP 136/74; PULSE 80; RESP 18; TEMP 97.9; O2SAT 97
[2023-06-05] MEDS ORDERED: VIB100 PO (15:03)
== END 2023-06-05 15:16 | disposition home or self-care (01) ==
LOC: MED 13:29
DX: L03.011 Cellulitis of right finger (principal); I11.9 Hypertensive heart disease without heart failure; Z79.899 Other long term (current) drug therapy
CPT/HCPCS: 99283

== ENCOUNTER 2024-04-19 13:53 | Emergency (ER) | payer MEDICAID ==
[~2024-04-19] VITALS: Ht 177.8 cm; Wt 92.1 kg
[~2024-04-19 13:53] MED LIST changes: -HYDR-5080 PO; -HYDR-5191 PO; -IBUP-2213 PO; +VIB100 PO
[2024-04-19 14:10] VITALS: BP 149/87; PULSE 76; RESP 19; TEMP 98.2; O2SAT 95
[2024-04-19] MEDS ORDERED: CEPH-588 PO (14:44)
[2024-04-19 14:56] VITALS: BP 149/87; PULSE 76; RESP 19; TEMP 98.2; O2SAT 95
--- NOTE | 2024-04-19 14:56 | NUR ---
Patient discharged with v/s stable. Written and verbal after care instructions given and explained. Patient alert, oriented and verbalized understanding of instructions. Ambulatory with steady gait. All questions addressed prior to discharge. ID band removed. Patient advised to follow up with PMD. Rx of CEPHALEXIN 500MG given and to be picked up at [facility] pharmacy. Patient educated on indication of medication including possible reaction and side effects. Opportunity to ask questions provided and answered.
== END 2024-04-19 14:56 | disposition home or self-care (01) ==
LOC: MED 13:53
DX: L03.116 Cellulitis of left lower limb (principal); Z98.890 Other specified postprocedural states; Z79.899 Other long term (current) drug therapy
CPT/HCPCS: 99283